=== PATIENT | male | born 1990 | race African-American/Black ===

== ENCOUNTER 2024-05-15 23:23 | Inpatient (IN) | payer SELFPAY ==
[2024-05-16 01:08] LABS: Anion Gap 18 mmol/L (10-20); BUN (Urea Nitrogen) 17 mg/dL (8.9-20.6); Calc. Creatinine Clearance 0 mL/min (70-130); Calcium 9.3 mg/dL (7.8-10.44); Carbon Dioxide 14 mmol/L (22-29); Chloride 107 mmol/L (98-107); Estimated GFR 78; Glucose 192 mg/dL (70-105); Potassium 3.7 mmol/L (3.5-5.1); Sodium 135 mmol/L (136-145)
[2024-05-16] MEDS ORDERED: NS 0.9% w/ 20 MEQ KCL 1,000 ML ONE (01:30)
[2024-05-16] MEDS ORDERED: D5 1/2 NS w/20 mEq KCL 1,000 ML ONE (01:44)
[2024-05-16] MEDS ORDERED: Sodium Chloride 0.9% 1,000 ML IV PRN ×4 (02:06)
[2024-05-16] MEDS ORDERED: NS 0.9% w/ 20 MEQ KCL 1,000 ML IV PRN ×2 (02:06)
[2024-05-16] MEDS ORDERED: Dextrose 50% Abboject 50 ML SYRINGE SLOW IVP PRN (02:06)
[2024-05-16] MEDS ORDERED: Dextrose 5 %-0.45 % NaCl 1,000 ML IV PRN (02:06)
[2024-05-16] MEDS ORDERED: Electrolyte Replacement Protocol 1 EACH IVPB PRN (02:06)
[2024-05-16 02:37] LABS: #Basophils 0.06 10x3/uL (0.0-0.2); %Basophils 0.6 % (0.0-1.0); %Eosinophils 1.7 % (0.0-10.0); %Lymphocytes 36.3 % (21.0-51.0); %Monocytes 10.1 % (0.0-10.0); Hematocrit 44.6 % (42.0-52.0); Hemoglobin 15.3 g/dL (14.0-18.0); Mean Corpuscular HGB CONC 34.3 g/dL (32.0-36.0); Mean Corpuscular Hemoglobin 28.6 pg (27.0-31.0); Mean Corpuscular Volume 83.4 fL (78.0-98.0); Mean Platelet Volume 11.3 fL (7.4-10.4); Platelet Count 242 10x3/uL (130-400); Red Blood Cell (RBC) Count 5.35 mill/uL (4.70-6.10)
[2024-05-16 02:53] LABS: Magnesium 2.1 mg/dL (1.6-2.6)
[2024-05-16 03:58] LABS: Anion Gap 19 mmol/L (10-20); BUN (Urea Nitrogen) 16 mg/dL (8.9-20.6); Calc. Creatinine Clearance 0 mL/min (70-130); Calcium 9.4 mg/dL (7.8-10.44); Carbon Dioxide 12 mmol/L (22-29); Chloride 109 mmol/L (98-107); Estimated GFR 84; Glucose 181 mg/dL (70-105); Magnesium 2.1 mg/dL (1.6-2.6); Potassium 3.7 mmol/L (3.5-5.1); Sodium 136 mmol/L (136-145)
[2024-05-16] MEDS: Sodium Chloride 0.9% 1,000 ML IV SCH (05:56)
[2024-05-16] MEDS: D5 1/2 NS w/20 mEq KCL 1,000 ML IV PRN (06:04)
[2024-05-16 07:40] LABS: Anion Gap 10 mmol/L (10-20); BUN (Urea Nitrogen) 13 mg/dL (8.9-20.6); Calc. Creatinine Clearance 229 mL/min (70-130); Calcium 8.1 mg/dL (7.8-10.44); Carbon Dioxide 19 mmol/L (22-29); Chloride 108 mmol/L (98-107); Estimated GFR 106; Glucose 165 mg/dL (70-105); Potassium 3.3 mmol/L (3.5-5.1); Sodium 134 mmol/L (136-145)
[2024-05-16 07:43] LABS: Hemoglobin A1c 11.8 % (4.0-6.0)
[2024-05-16] MEDS: Pantoprazole DR 40 MG TAB PO SCH (09:32)
[2024-05-16] MEDS: Lisinopril 20 MG TAB PO SCH (09:32)
[2024-05-16] MEDS: Enoxaparin 40 MG (0.4 mL) SYRINGE SC SCH (09:33)
[2024-05-16] MEDS: Potassium Bicarbonate/Cit Ac 20 MEQ TAB PER TUBE SCH (09:33)
[2024-05-16] MEDS: Clindamycin 150 MG CAP PO SCH (09:52)
[2024-05-16] MEDS: INSULIN REGULAR IN 0.9 % NACL 100 UNITS in Premix 1 BAG IVPB SCH (10:49)
[2024-05-16 12:03] LABS: Anion Gap 10 mmol/L (10-20); BUN (Urea Nitrogen) 11 mg/dL (8.9-20.6); Calc. Creatinine Clearance 229 mL/min (70-130); Calcium 7.9 mg/dL (7.8-10.44); Carbon Dioxide 20 mmol/L (22-29); Chloride 107 mmol/L (98-107); Estimated GFR 106; Glucose 267 mg/dL (70-105); Potassium 3.9 mmol/L (3.5-5.1); Sodium 133 mmol/L (136-145)
[2024-05-16 14:25] LABS: Potassium 3.7 mmol/L (3.5-5.1)
[2024-05-16] MEDS: Insulin Glargine 30 UNITS/0.3 ML VIAL SC SCH (15:57)
[2024-05-16] MEDS: Insulin Lispro 100 UNIT/ML 10 ML VIAL SC PRN (21:35)
[2024-05-17] MEDS: Insulin Regular, Human 100 UNIT/ML 10 ML VIAL SC PRN (06:13)
[2024-05-17 07:14] LABS: Anion Gap 12 mmol/L (10-20); BUN (Urea Nitrogen) 9 mg/dL (8.9-20.6); Calc. Creatinine Clearance 234 mL/min (70-130); Calcium 8.3 mg/dL (7.8-10.44); Carbon Dioxide 20 mmol/L (22-29); Chloride 107 mmol/L (98-107); Estimated GFR 108; Glucose 280 mg/dL (70-105); Sodium 135 mmol/L (136-145)
[2024-05-17] MEDS: Saccharomyces boulardii 250 MG CAP PO SCH (09:54)
[2024-05-17] MEDS: 1/2 NS w/Potassium 20 mEq 1,000 ML IV SCH (10:27)
[2024-05-17 12:43] LABS: Magnesium 1.7 mg/dL (1.6-2.6); Phosphorus 2.6 mg/dL (2.3-4.7)
[2024-05-17] MEDS: HumuLIN 70/30 100 Unit/ml 10 ml Vial SC SCH (14:06)
[2024-05-17 14:59] VITALS: BMI 41.2
[2024-05-17] MEDS: Magnesium 2 GM/50 ML(in water) 2 GM in Premix 1 BAG IVPB SCH (15:02)
[2024-05-17] MEDS: Insulin Regular 300 UNITS/3 ML VIAL SC PRN (17:32)
[2024-05-17] MEDS: Insulin NPH Human Isophane 100 UNITS/ML (10 ML VIAL) SC SCH (20:20)
[2024-05-18 07:19] LABS: Phosphorus 3.1 mg/dL (2.3-4.7)
[2024-05-18 07:24] LABS: Anion Gap 11 mmol/L (10-20); BUN (Urea Nitrogen) 8 mg/dL (8.9-20.6); Calc. Creatinine Clearance 282 mL/min (70-130); Calcium 8.6 mg/dL (7.8-10.44); Carbon Dioxide 22 mmol/L (22-29); Chloride 106 mmol/L (98-107); Estimated GFR 120; Glucose 257 mg/dL (70-105); Magnesium 2.1 mg/dL (1.6-2.6); Potassium 3.9 mmol/L (3.5-5.1); Sodium 135 mmol/L (136-145)
[2024-05-18] MEDS ORDERED: HumuLIN 70/30 100 Unit/ml 10 ml Vial SC SCH ×3 (07:30→17:00)
[2024-05-18] MEDS: HumuLIN 70/30 100 Unit/ml 10 ml Vial SC SCH ×3 (10:53→16:26)
[2024-05-18] MEDS ORDERED: Insulin Regular 300 UNITS/3 ML VIAL SC PRN (12:04)
[2024-05-18] MEDS: Insulin Regular, Human 100 UNIT/ML 10 ML VIAL SC PRN (13:39)
[2024-05-19 06:24] LABS: Anion Gap 10 mmol/L (10-20); BUN (Urea Nitrogen) 8 mg/dL (8.9-20.6); Calc. Creatinine Clearance 253 mL/min (70-130); Calcium 8.2 mg/dL (7.8-10.44); Carbon Dioxide 24 mmol/L (22-29); Chloride 107 mmol/L (98-107); Estimated GFR 116; Glucose 262 mg/dL (70-105); Potassium 3.5 mmol/L (3.5-5.1); Sodium 137 mmol/L (136-145)
[2024-05-19 08:20] VITALS: BP 142/86
[2024-05-19] MEDS: Potassium Chloride 20 MEQ TAB PO SCH (08:23)
[2024-05-19 08:43] VITALS: TEMP 98
== END 2024-05-19 14:00 | disposition home or self-care (01) | DRG 638 ==
LOC: ERS 23:23 → ERHOLD 05-16 03:57 → CCU 05-16 05:01 → T4-B 05-16 18:38
PROVIDERS: ADMIT Internal Medicine; ATTEND Internal Medicine
DX: E11.10 Type 2 diabetes mellitus with ketoacidosis without coma (principal); L02.412 Cutaneous abscess of left axilla; Z68.41 Body mass index [BMI] 40.0-44.9, adult; I10 Essential (primary) hypertension; K21.9 Gastro-esophageal reflux disease without esophagitis; E66.01 Morbid (severe) obesity due to excess calories; Z79.4 Long term (current) use of insulin
CPT/HCPCS: 36415; 36416; 80048; 83036; 83735; 84100; 85025; 93005; 93010; 96374; J1650; J1815; J3475; J3480; J7050